=== PATIENT | male | born 1940 | race Caucasian/White ===

== ENCOUNTER 2016-11-21 18:10 | Inpatient (IN) | payer OTHER ==
[~2016-11-21] VITALS: Ht 182.9 cm; Wt 107.0 kg
[2016-11-21 20:20] LABS: EOSINOPHIL (%) 0.6 % (0-5); EOSINOPHIL COUNT 0.1 K/uL (0-0.3); HEMATOCRIT 43.6 % (38.0-50.0); IMMATURE GRANULOCYTE (%) 0.5 % (0.0-0.7); LYMPHOCYTE COUNT 1.5 K/uL (1.0-2.8); MCH 31.4 PG (29.0-34.0); MCHC 34.4 G/DL (30.0-36.0); MCV 91.2 FL (86-99); MEAN PLAT.VOLUME 10.5 uM^3 (9.0-12.4); MONOCYTE (%) 6.3 % (3-12); MONOCYTE COUNT 0.5 K/uL (0-0.8); NEUTROPHIL (%) 74.1 % (45-76); PLATELET COUNT 139 K/uL (156-360); RBC DIS.WIDTH-CV 13.9 % (11.8-14.6); RBC DIS.WIDTH-SD 46.3 % (39-53); RED BLOOD COUNT 4.78 M/uL (4.00-5.50); WHITE BLOOD COUNT 8.1 K/uL (4.1-10.2)
[2016-11-21 20:31] LABS: CHLORIDE 100 mEq/L (99-109); POTASSIUM 3.6 mEq/L (3.7-5.4); SODIUM 137 mEq/L (136-147)
[2016-11-21 20:33] LABS: GLUCOSE 149 mg/dL (70-99)
[2016-11-21 20:35] LABS: ANION GAP 9 MEQ/L (2-14)
[2016-11-21 20:37] LABS: GFR ESTIMATE (CALCULATED) > 59 mL/min/
[2016-11-21 20:38] LABS: D-DIMER ELISA 0.44 mg/L FEU (< 0.57); UREA NITROGEN (BUN) 16 mg/dL (9-23)
[2016-11-21 20:58] LABS: ADD MIUA? YES; BILIRUBIN NEGATIVE; BLOOD NEGATIVE; COLOR YELLOW ((YELLOW)); GLUCOSE (STRIP) NEGATIVE; KETONES NEGATIVE; LEUKOCYTES LARGE; NITRITE NEGATIVE; PROTEIN (STRIP) 30; SPECIFIC GRAVITY 1.026 (1.000-1.030)
[2016-11-21 21:25] LABS: BACTERIA 2+ /HPF; EPITHELIAL CELLS 1+ /HPF; MUCUS 1+ /LPF; RED BLOOD CELLS 0-5 /HPF (0-5); UCUL ADDED? YES; WHITE BLOOD CELLS 20-30 /HPF (0-5)
[2016-11-21 21:31] LABS: TOTAL BILIRUBIN 0.7 mg/dL (0.0-1.0)
[2016-11-21 21:32] LABS: ALKALINE PHOSPHATASE 56 IU/L (3-129); TROP-I INTERPRETATION NEGATIVE; TROPONIN-I < 0.01 ng/mL (0.0-0.30)
[2016-11-21 21:35] LABS: DIRECT BILIRUBIN 0.3 mg/dL (0.0-0.3)
[2016-11-21 21:36] LABS: LIPASE 21 U/L (1.0-51.0)
[2016-11-21] MEDS ORDERED: SIMVASTATIN10 MG PO (21:37)
[2016-11-21] MEDS ORDERED: LO-DOSE ASPIRIN81 M2 PO (21:37)
[2016-11-21] MEDS ORDERED: KLOR-CON 1010 ME1 PO (21:37)
[2016-11-21] MEDS ORDERED: FUROSEMIDE40 MG PO (21:37)
[2016-11-21] MEDS ORDERED: PRESERVISION T1 EACH PO (21:37)
[2016-11-21] MEDS ORDERED: KLOR-CON M1010 MEQ PO (21:38)
[2016-11-21] MEDS ORDERED: METOPROLOL TART50 MG PO (21:38)
[2016-11-22 01:21] LABS: TROP-I INTERPRETATION NEGATIVE; TROPONIN-I < 0.01 ng/mL (0.0-0.30)
[2016-11-22 08:02] VITALS: BP 135/65
[2016-11-22 11:44] VITALS: BP 138/63
[2016-11-22 16:19] VITALS: BP 143/65
[2016-11-22 20:00] VITALS: BP 132/63
[2016-11-22 23:15] VITALS: BP 122/61
[2016-11-23 01:30] LABS: TROP-I INTERPRETATION NEGATIVE; TROPONIN-I < 0.01 ng/mL (0.0-0.30)
[2016-11-23 03:10] VITALS: BP 111/53
[2016-11-23 06:17] LABS: HEMATOCRIT 37.6 % (38.0-50.0); MCHC 34.3 G/DL (30.0-36.0); MCV 93.3 FL (86-99); MEAN PLAT.VOLUME 10.8 uM^3 (9.0-12.4); PLATELET COUNT 105 K/uL (156-360); RBC DIS.WIDTH-CV 13.9 % (11.8-14.6); RBC DIS.WIDTH-SD 47.3 % (39-53); RED BLOOD COUNT 4.03 M/uL (4.00-5.50); WHITE BLOOD COUNT 4.8 K/uL (4.1-10.2)
[2016-11-23 06:38] LABS: ANION GAP 6 MEQ/L (2-14); CHLORIDE 108 MEQ/L (99-109); GFR ESTIMATE (CALCULATED) > 59 mL/min/; GLUCOSE 117 mg/dL (70-99); POTASSIUM 4.1 MEQ/L (3.7-5.4); SAMPLE HEMOLYSIS CHECK 0; SAMPLE ICTERIC CHECK 0; SAMPLE LIPEMIA CHECK 0; SODIUM 142 MEQ/L (136-147); UREA NITROGEN (BUN) 12 mg/dL (9-23)
[2016-11-23 07:05] VITALS: BP 156/69
[2016-11-23] MEDS ORDERED: CYCLOBENZAPRINE10 MG PO (11:53)
[2016-11-23] MEDS ORDERED: LIDOCAINE700 MG TD (11:54)
[2016-11-23] MEDS ORDERED: TRAMADOL HCL50 MG PO (11:55)
[2016-11-23 12:00] VITALS: BP 126/58
== END 2016-11-23 14:22 | disposition home or self-care (01) | DRG 690 ==
LOC: EME 18:10 → EDOF 11-22 00:44 → 5WEST 11-22 01:59
PROVIDERS: Emergency Medicine; Hospitalist
DX: N39.0 Urinary tract infection, site not specified (principal); M51.24 Other intervertebral disc displacement, thoracic region; R31.9 Hematuria, unspecified; E78.5 Hyperlipidemia, unspecified; I10 Essential (primary) hypertension; I25.10 Atherosclerotic heart disease of native coronary artery without angina pectoris; K40.90 Unilateral inguinal hernia, without obstruction or gangrene, not specified as recurrent; K57.30 Diverticulosis of large intestine without perforation or abscess without bleeding; K80.20 Calculus of gallbladder without cholecystitis without obstruction; M48.04 Spinal stenosis, thoracic region; Z79.82 Long term (current) use of aspirin; Z79.899 Other long term (current) drug therapy; Z85.46 Personal history of malignant neoplasm of prostate; Z87.442 Personal history of urinary calculi; Z95.1 Presence of aortocoronary bypass graft; M54.6 Pain in thoracic spine; R07.9 Chest pain, unspecified; M48.10 Ankylosing hyperostosis [Forestier], site unspecified; I77.811 Abdominal aortic ectasia; E66.9 Obesity, unspecified; Z68.31 Body mass index [BMI] 31.0-31.9, adult
CPT/HCPCS: 72128; 74176; 80048; 80076; 81003; 83690; 84484; 85025; 85027; 85379; 87077; 87086; 87186; 93005; 93306; 94799; 99281; 99285; J0696; J1644; J1885; J2270; J2405; J7030; J7050